=== PATIENT | female | born 1985 | race Caucasian/White ===

== ENCOUNTER 2018-08-09 00:05 | Emergency (ER) | payer OTHER ==
[~2018-08-09] VITALS: Ht 170.2 cm; Wt 87.5 kg
[2018-08-09 00:10] VITALS: BP 113/78
--- NOTE | 2018-08-09 00:10 | NUR ---
ED Nurse Note: Patient walked into ED accompanied by mom c/o right arm pain. 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 patient is able to move her arm around however slowly. rates her pain a 0, states it just feels like something is locked up. will wait for furhter ordes
[2018-08-09] MEDS ORDERED: IBUPROFEN600 MG ORAL (00:30)
[2018-08-09] MEDS ORDERED: HYDROcodone/Acetamin 5/325 tab ORAL ONE (00:30)
--- NOTE | 2018-08-09 00:30 | Emergency Room Report ---
History of Present Illness General Chief Complaint: Upper Extremity Injury Source: Patient Present Illness HPI This is a 32-year-old female who is right-hand dominant. She presents with chief complaint of right elbow pain. 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 She was doing her routine work when she developed right elbow pain. This occurred after she pushed open the windows server administrator door and felt pain to the back of her elbow. Pain radiates up her arm. No injury. It progressively got worse through the day. She went home and ice it down and took some ibuprofen. Did not help. No trauma. Pain is sharp in nature. 8 out of 10 when it occur. Better with rest. Allergies: Coded Allergies: Mushroom (Verified Allergy, Unknown, 08/09/18) rash Patient History Past Medical History: see triage record, old chart reviewed Past Surgical History: none Pertinent Family History: none Social History: Denies: drug use Last Menstrual Period: 07/13 Now: No Immunizations: other Reviewed Nursing Documentation: PMH: Agreed; PSxH: Agreed Nursing Documentation-PMH Past Medical History: No Stated History Review of Systems Eye: Denies: eye pain, blurred vision ENT: Denies: ear pain, nose congestion, throat swelling Respiratory: Denies: cough, shortness of breath Cardiovascular: Denies: chest pain, palpitations Gastrointestinal: Denies: abdominal pain, diarrhea, nausea, vomiting Musculoskeletal: Reports: joint pain; Denies: back pain Skin: Denies: rash Neurological: Denies: headache, numbness Endocrine: Denies: increased thirst, increased urine Hematologic/Lymphatic: Denies: easy bruising All Other Systems: negative except mentioned in HPI Physical Exam Vital Signs Date Time Temp Pulse Resp B/P (MAP) Pulse Ox O2 Delivery O2 Flow Rate FiO2 08/09/18 00:07 98.2 68 17 113/78 (90) 98 Room Air Vitals normal Sp02 EP Interpretation: reviewed, normal General Appearance: well appearing, no apparent distress, alert Head: normocephalic, atraumatic Eyes: bilateral eye PERRL, bilateral eye EOMI ENT: hearing grossly normal, normal pharynx Neck: full range of motion, supple, no meningismus Respiratory: chest non-tender, lungs clear, normal breath sounds Cardiovascular #1: regular rate, rhythm, no murmur Gastrointestinal: normal bowel sounds, non tender, no mass, no organomegaly, no bruit, non-distended Musculoskeletal: back normal, gait/station normal, normal range of motion, other - Right elbow: She has tenderness over that the distal triceps tendon at the insertion to the olecranon. Pain with arm extension against resistance. No deformity. Neurologic: alert, oriented x3 Psychiatric: mood/affect normal Procedures Splinting Splinting : Consent: Verbal Location: Right elbow Pre-Made Type: sling Pre-Proc Neuro Vasc Exam: normal Post-Proc Neuro Vasc Exam: normal Patient Tolerated: Well Complications: None Medical Decision Making Diagnostic Impression: Primary Impression: Triceps tendonitis ER Course Patient presents with a triceps tendinitis. No evidence of any rupture. No evidence of septic joint. No fracture dislocation. Will discharge home. Other X-Ray Diagnostic Results Other X-Ray Diagnostic Results : X-Ray ordered: Right elbow x-rays # of Views/Limited Vs Complete: 3 View Indication: Pain EP Interpretation: Yes Interpretation: no dislocation, no soft tissue swelling, no fractures Impression: No acute disease Electronically Signed by: Baltazar Aocsta MD Last Vital Signs Date Time Temp Pulse Resp B/P (MAP) Pulse Ox O2 Delivery O2 Flow Rate FiO2 08/09/18 00:10 98.2 83 17 113/78 98 Room Air Status: improved Disposition: HOME, SELF-CARE Condition: Stable Scripts Ibuprofen* (MOTRIN*) 600 Mg Tablet 600 MG ORAL THREE TIMES A DAY, #30 TAB 0 Refills Prov: Baltazar Acosta MD 08/09/18 Additional Instructions: Follow-up with your workman's comp doctor in 7 days. Return if symptoms worsen. Baltazar Acosta MD Aug 09, 2018 00:30
[2018-08-09 00:45] VITALS: BP 120/72
--- NOTE | 2018-08-09 00:45 | NUR ---
ER DISCHARGE NOTE: Patient is cleared to be discharged per ERMD, pt is aox4, on room air, with stable vital signs. pt was given dc and prescription instructions, pt was able to verbalize understanding, pt id band removed without complications. pt is able to ambulate with steady gait. pt took all belongings.
--- NOTE | 2018-08-09 12:39 | Diagnostic Imaging Report ---
Indication: Pain Findings: 3 views of the right elbow were obtained. There is a calcification at the terminal end of the triceps tendon adjacent to the olecranon. This could either represent an old triceps injury such as a small avulsive injury or calcific tendinopathy. Correlate clinically. There is no joint effusion. There is no acute fracture. No malalignment seen. IMPRESSION: No acute fracture or malalignment. Triceps tendinopathy versus old avulsion injury
== END 2018-08-09 00:45 | disposition home or self-care (01) ==
LOC: EMR 00:27
DX: M77.9 Enthesopathy, unspecified (principal)
CPT/HCPCS: 29105; 99283